=== PATIENT | female | born 1935 | race Caucasian/White ===

== ENCOUNTER 2017-08-21 13:21 | Inpatient (IN) | payer MEDICARE, OTHER ==
[2017-08-21] MEDS ORDERED: BISACODYL 10 MG SUPP PR (14:30)
[2017-08-21] MEDS: CARBIDOPA/LEVODOPA (25/100) TAB PO ×2 (16:59→20:44)
[2017-08-21] MEDS: FAMOTIDINE 20 MG TAB PO (20:43)
[2017-08-21] MEDS: DOCUSATE SODIUM 100 MG CAP PO (20:43)
[2017-08-21] MEDS: LORAZEPAM 1 MG TAB PO (20:43)
[2017-08-21] MEDS: AMIODARONE 200 MG TAB PO (20:43)
[2017-08-21] MEDS: ASPIRIN 81 MG TAB PO (20:43)
[2017-08-21] MEDS: METOPROLOL 50 MG TAB PO (22:09)
[2017-08-22] MEDS: HYDROCODONE/APAP (5/325) TAB PO ×3 (00:43→20:21)
[2017-08-22] MEDS: METOPROLOL 50 MG TAB PO ×4 (06:17→22:21)
[2017-08-22] MEDS: traMADol 50 MG TAB PO (06:18)
[2017-08-22 07:30] LABS: WHITE BLOOD COUNT 9.4 10^3/ul (4.8-10.8)
[2017-08-22 07:30] LABS: ABNORMAL IP MESSAGE 1; HEMATOCRIT 26.7 % (37.0-47.0); HEMOGLOBIN 8.3 g/dl (12.0-16.0); MEAN CORPUSCULAR HEMOGLOBIN 26.9 pg (29.0-33.0); MEAN CORPUSCULAR HGB CONC 31.1 g/dl (32.0-37.0); MEAN CORPUSCULAR VOLUME 86.7 fl (82.0-101.0); MEAN PLATELET VOLUME 9.4 fl (7.4-10.4); NUCLEATED RED BLOOD CELLS% 0.2 /100WBC (0.0-0.0); PLATELET COUNT 508 10^3/UL (140-415); RED BLOOD COUNT 3.08 10^6/ul (4.20-5.40); RED CELL DISTRIBUTION WIDTH 14.1 % (11.5-14.5)
[2017-08-22 07:34] LABS: POSITIVE DIFF @See below
[2017-08-22 07:35] LABS: ADD MAN DIFF? YES
[2017-08-22 07:43] LABS: ADD UMIC YES; ALANINE AMINOTRANSFERASE 28 IU/L (13-69); ALBUMIN/GLOBULIN RATIO 0.83; ALKALINE PHOSPHATASE 83 IU/L (42-121); ANION GAP 13 (8-16); ASPARTATE AMINO TRANSFERASE 27 IU/L (15-46); BILIRUBIN,INDIRECT 0.4 mg/dl (0-1.1); BILIRUBIN,TOTAL 0.4 mg/dl (0.2-1.3); BLOOD UREA NITROGEN 29 mg/dl (7-20); CALCIUM 9.3 mg/dl (8.4-10.2); CARBON DIOXIDE 28 mmol/L (21-31); CHLORIDE 99 mmol/L (97-110); CREATININE 0.98 mg/dl (0.44-1.00); GLUCOSE 115 mg/dl (70-220); POTASSIUM 4.8 mmol/L (3.5-5.1); SODIUM 135 mmol/L (135-144); TOTAL PROTEIN 6.6 g/dl (6.1-8.1); UR ASCORBIC ACID NEGATIVE (NEGATIVE); UR BACTERIA FEW /HPF (NONE SEEN); UR BILIRUBIN (Dip) NEGATIVE (NEGATIVE); UR BLOOD (Dip) NEGATIVE (NEGATIVE); UR CLARITY SLIGHTLY CLOUDY (CLEAR); UR COLOR YELLOW (YELLOW); UR GLUCOSE (Dip) NEGATIVE (NEGATIVE); UR KETONES (Dip) NEGATIVE (NEGATIVE); UR LEUKOCYTE ESTERASE (Dip) TRACE Leu/ul (NEGATIVE); UR NITRITE (Dip) NEGATIVE (NEGATIVE); UR RBC 1 /HPF (0-5); UR SPECIFIC GRAVITY (Dip) 1.016 (1.003-1.030); UR SQUAMOUS EPITHELIAL CELL FEW /HPF (FEW); UR TOTAL PROTEIN (Dip) NEGATIVE (NEGATIVE); UR UROBILINOGEN (Dip) NEGATIVE (NEGATIVE); UR WBC 8 /HPF (0-5)
[2017-08-22] MEDS: LUBIPROSTONE 24 MCG CAP PO (09:07)
[2017-08-22] MEDS: AMIODARONE 200 MG TAB PO ×2 (09:08→20:21)
[2017-08-22] MEDS: CITALOPRAM 20 MG TAB PO (09:08)
[2017-08-22] MEDS: ASPIRIN 81 MG TAB PO ×2 (09:08→20:20)
[2017-08-22] MEDS: DOCUSATE SODIUM 100 MG CAP PO ×2 (09:08→20:21)
[2017-08-22] MEDS: CARBIDOPA/LEVODOPA (25/100) TAB PO ×4 (09:09→20:21)
[2017-08-22] MEDS: FOLIC ACID 1 MG TAB PO (09:09)
[2017-08-22] MEDS: FAMOTIDINE 20 MG TAB PO ×2 (09:09→20:20)
[2017-08-22] MEDS: MAGNESIUM OXIDE 400 MG TAB PO (09:11)
[2017-08-22 09:35] LABS: ANISOCYTOSIS 1+ (0-0); EOSINOPHILS % (M) 2 % (0-7); LYMPHOCYTES #M 2.7 10^3/ul (0.8-2.9); LYMPHOCYTES % (M) 29 % (15-51); MICROCYTOSIS 1+ (0-0); MONOCYTE #M 0.4 10^3/ul (0.3-0.9); MONOCYTES % (M) 5 % (0-11); MYELOCYTES #M 0.1 10^3/ul (0.0-0.0); MYELOCYTES % (M) 2 % (0-0); PLATELET ESTIMATE INCREASED; POIKILOCYTOSIS 2+ (0-0); POLYCHROMASIA 1+ (0-0); PROMYELOCYTES % (M) 1 % (0-0); SEGMENTED NEUTROPHILS (M) % 61 % (39-77); SMUDGE%M 3 % (0-0)
[2017-08-22] MEDS: LORAZEPAM 1 MG TAB PO (20:21)
[2017-08-23] MEDS: ZOLPIDEM 5 MG TAB PO (00:58)
[2017-08-23] MEDS: HYDROCODONE/APAP (5/325) TAB PO ×3 (03:13→16:21)
[2017-08-23] MEDS: METOPROLOL 50 MG TAB PO ×3 (06:12→20:16)
[2017-08-23] MEDS: CITALOPRAM 20 MG TAB PO (08:38)
[2017-08-23] MEDS: FOLIC ACID 1 MG TAB PO (08:38)
[2017-08-23] MEDS: DOCUSATE SODIUM 100 MG CAP PO ×2 (08:38→20:12)
[2017-08-23] MEDS: ASPIRIN 81 MG TAB PO ×2 (08:38→20:12)
[2017-08-23] MEDS: CARBIDOPA/LEVODOPA (25/100) TAB PO ×4 (08:38→20:12)
[2017-08-23] MEDS: LUBIPROSTONE 24 MCG CAP PO (08:38)
[2017-08-23] MEDS: FAMOTIDINE 20 MG TAB PO ×2 (08:38→20:12)
[2017-08-23] MEDS: MAGNESIUM OXIDE 400 MG TAB PO (08:38)
[2017-08-23] MEDS: AMIODARONE 200 MG TAB PO ×2 (08:39→20:12)
[2017-08-23] MEDS: traMADol 50 MG TAB PO (08:40)
[2017-08-23] MEDS: GUAIFENESIN/DM 5ML CUP PO (16:21)
[2017-08-23] MEDS: LORAZEPAM 1 MG TAB PO (20:12)
[2017-08-24] MEDS: HYDROCODONE/APAP (5/325) TAB PO ×2 (01:51→14:18)
[2017-08-24] MEDS: METOPROLOL 50 MG TAB PO ×3 (06:43→20:41)
[2017-08-24] MEDS: LUBIPROSTONE 24 MCG CAP PO (09:15)
[2017-08-24] MEDS: CITALOPRAM 20 MG TAB PO (09:15)
[2017-08-24] MEDS: ASPIRIN 81 MG TAB PO ×2 (09:15→20:44)
[2017-08-24] MEDS: AMIODARONE 200 MG TAB PO ×2 (09:16→20:40)
[2017-08-24] MEDS: DOCUSATE SODIUM 100 MG CAP PO ×2 (09:16→20:42)
[2017-08-24] MEDS: FAMOTIDINE 20 MG TAB PO ×2 (09:17→20:39)
[2017-08-24] MEDS: MAGNESIUM OXIDE 400 MG TAB PO (09:17)
[2017-08-24] MEDS: FOLIC ACID 1 MG TAB PO (09:17)
[2017-08-24] MEDS: CARBIDOPA/LEVODOPA (25/100) TAB PO ×4 (09:17→20:39)
[2017-08-24] MEDS: LORAZEPAM 1 MG TAB PO (20:39)
[2017-08-25] MEDS: METOPROLOL 50 MG TAB PO ×3 (05:53→20:16)
[2017-08-25] MEDS: GUAIFENESIN/DM 5ML CUP PO (05:54)
[2017-08-25] MEDS: CARBIDOPA/LEVODOPA (25/100) TAB PO ×4 (08:17→20:13)
[2017-08-25] MEDS: CITALOPRAM 20 MG TAB PO (08:17)
[2017-08-25] MEDS: LUBIPROSTONE 24 MCG CAP PO (08:17)
[2017-08-25] MEDS: DOCUSATE SODIUM 100 MG CAP PO ×2 (08:17→20:13)
[2017-08-25] MEDS: MAGNESIUM OXIDE 400 MG TAB PO (08:17)
[2017-08-25] MEDS: ASPIRIN 81 MG TAB PO ×2 (08:17→20:13)
[2017-08-25] MEDS: FOLIC ACID 1 MG TAB PO (08:18)
[2017-08-25] MEDS: AMIODARONE 200 MG TAB PO ×2 (08:18→20:17)
[2017-08-25] MEDS: FAMOTIDINE 20 MG TAB PO ×2 (08:18→20:13)
[2017-08-25] MEDS: HYDROCODONE/APAP (5/325) TAB PO (13:03)
[2017-08-25] MEDS: LORAZEPAM 1 MG TAB PO (20:14)
[2017-08-25] MEDS: SENNA TAB PO (20:24)
[2017-08-26] MEDS: CIPROFLOXACIN 500 MG TAB PO (05:05)
[2017-08-26] MEDS: METOPROLOL 50 MG TAB PO ×3 (05:05→20:12)
[2017-08-26] MEDS: ACETAMINOPHEN 325 MG TAB PO (05:06)
[2017-08-26 07:27] LABS: ADD MAN DIFF? NO
[2017-08-26 07:29] LABS: BASOPHILS % 0.4 % (0.0-2.0); EOSINOPHILS # 0.2 10^3/ul (0.0-0.5); EOSINOPHILS % 2.3 % (0.0-7.0); HEMATOCRIT 29.1 % (37.0-47.0); LYMPHOCYTES # 2.7 10^3/ul (0.8-2.9); LYMPHOCYTES % 25.8 % (15.0-51.0); MEAN CORPUSCULAR HEMOGLOBIN 27.5 pg (29.0-33.0); MEAN CORPUSCULAR HGB CONC 30.9 g/dl (32.0-37.0); MEAN PLATELET VOLUME 8.8 fl (7.4-10.4); MONOCYTE # 0.8 10^3/ul (0.3-0.9); MONOCYTES % 7.2 % (0.0-11.0); NEUTROPHIL # 6.5 10^3/ul (1.6-7.5); NEUTROPHILS % 61.5 % (39.0-77.0); PLATELET COUNT 648 10^3/UL (140-415); RED BLOOD COUNT 3.27 10^6/ul (4.20-5.40); RED CELL DISTRIBUTION WIDTH 14.9 % (11.5-14.5)
[2017-08-26 07:29] LABS: WHITE BLOOD COUNT 10.6 10^3/ul (4.8-10.8)
[2017-08-26 07:54] LABS: ANION GAP 12 (8-16); BLOOD UREA NITROGEN 16 mg/dl (7-20); CALCIUM 8.5 mg/dl (8.4-10.2); CARBON DIOXIDE 26 mmol/L (21-31); CHLORIDE 102 mmol/L (97-110); CREATININE 0.79 mg/dl (0.44-1.00); GLUCOSE 131 mg/dl (70-220); POTASSIUM 4.3 mmol/L (3.5-5.1); SODIUM 136 mmol/L (135-144)
[2017-08-26] MEDS: LUBIPROSTONE 24 MCG CAP PO (09:22)
[2017-08-26] MEDS: SENNA TAB PO (09:22)
[2017-08-26] MEDS: MAGNESIUM OXIDE 400 MG TAB PO (09:22)
[2017-08-26] MEDS: FOLIC ACID 1 MG TAB PO (09:22)
[2017-08-26] MEDS: CARBIDOPA/LEVODOPA (25/100) TAB PO ×4 (09:22→20:11)
[2017-08-26] MEDS: DOCUSATE SODIUM 100 MG CAP PO ×2 (09:23→21:00)
[2017-08-26] MEDS: CITALOPRAM 20 MG TAB PO (09:23)
[2017-08-26] MEDS: AMIODARONE 200 MG TAB PO (09:24)
[2017-08-26] MEDS: FAMOTIDINE 20 MG TAB PO ×2 (09:24→20:12)
[2017-08-26] MEDS: ASPIRIN 81 MG TAB PO ×2 (09:24→20:10)
[2017-08-26] MEDS: MAGNESIUM HYDROXIDE 30ML CUP PO (13:31)
[2017-08-26] MEDS: GUAIFENESIN/DM 5ML CUP PO (13:57)
[2017-08-26] MEDS: LORAZEPAM 1 MG TAB PO (20:11)
[2017-08-26] MEDS: HYDROCODONE/APAP (5/325) TAB PO (20:45)
[2017-08-27] MEDS: CIPROFLOXACIN 500 MG TAB PO (06:47)
[2017-08-27] MEDS: ASPIRIN 81 MG TAB PO ×2 (08:47→20:29)
[2017-08-27] MEDS: FOLIC ACID 1 MG TAB PO (08:47)
[2017-08-27] MEDS: METOPROLOL 50 MG TAB PO ×2 (08:47→20:29)
[2017-08-27] MEDS: CITALOPRAM 20 MG TAB PO (08:47)
[2017-08-27] MEDS: DOCUSATE SODIUM 100 MG CAP PO ×2 (08:47→21:00)
[2017-08-27] MEDS: LUBIPROSTONE 24 MCG CAP PO (08:47)
[2017-08-27] MEDS: SENNA TAB PO (08:48)
[2017-08-27] MEDS: FAMOTIDINE 20 MG TAB PO ×2 (08:48→20:29)
[2017-08-27] MEDS: MAGNESIUM OXIDE 400 MG TAB PO (08:48)
[2017-08-27] MEDS: CARBIDOPA/LEVODOPA (25/100) TAB PO ×4 (08:48→20:29)
[2017-08-27] MEDS: LORAZEPAM 1 MG TAB PO (20:29)
[2017-08-27] MEDS: HYDROCODONE/APAP (5/325) TAB PO (20:59)
[2017-08-27] MEDS: ZOLPIDEM 5 MG TAB PO (23:07)
[2017-08-28] MEDS: CIPROFLOXACIN 500 MG TAB PO (05:54)
[2017-08-28] MEDS: CARBIDOPA/LEVODOPA (25/100) TAB PO ×4 (09:27→20:03)
[2017-08-28] MEDS: METOPROLOL 50 MG TAB PO ×2 (09:27→20:07)
[2017-08-28] MEDS: ASPIRIN 81 MG TAB PO ×2 (09:28→20:03)
[2017-08-28] MEDS: FOLIC ACID 1 MG TAB PO (09:29)
[2017-08-28] MEDS: SENNA TAB PO (09:29)
[2017-08-28] MEDS: DOCUSATE SODIUM 100 MG CAP PO ×2 (09:29→20:07)
[2017-08-28] MEDS: MAGNESIUM OXIDE 400 MG TAB PO (09:29)
[2017-08-28] MEDS: LUBIPROSTONE 24 MCG CAP PO (09:29)
[2017-08-28] MEDS: FAMOTIDINE 20 MG TAB PO ×2 (09:29→20:03)
[2017-08-28] MEDS: CITALOPRAM 20 MG TAB PO (09:29)
[2017-08-28] MEDS: ACETAMINOPHEN 325 MG TAB PO (11:29)
[2017-08-28] MEDS: LORAZEPAM 1 MG TAB PO (20:03)
[2017-08-28] MEDS: ZOLPIDEM 5 MG TAB PO (22:12)
[2017-08-28] MEDS: HYDROCODONE/APAP (5/325) TAB PO (22:12)
[2017-08-29] MEDS: CIPROFLOXACIN 500 MG TAB PO (06:00)
[2017-08-29] MEDS: HYDROCODONE/APAP (5/325) TAB PO ×2 (06:55→21:24)
[2017-08-29] MEDS: CARBIDOPA/LEVODOPA (25/100) TAB PO ×4 (09:20→20:09)
[2017-08-29] MEDS: LUBIPROSTONE 24 MCG CAP PO (09:20)
[2017-08-29] MEDS: CITALOPRAM 20 MG TAB PO (09:22)
[2017-08-29] MEDS: SENNA TAB PO (09:23)
[2017-08-29] MEDS: FOLIC ACID 1 MG TAB PO (09:23)
[2017-08-29] MEDS: FAMOTIDINE 20 MG TAB PO ×2 (09:23→20:09)
[2017-08-29] MEDS: ASPIRIN 81 MG TAB PO ×2 (09:23→20:09)
[2017-08-29] MEDS: DOCUSATE SODIUM 100 MG CAP PO ×2 (09:23→20:08)
[2017-08-29] MEDS: MAGNESIUM OXIDE 400 MG TAB PO (09:23)
[2017-08-29] MEDS: METOPROLOL 50 MG TAB PO ×2 (09:24→20:09)
[2017-08-29] MEDS: LORAZEPAM 1 MG TAB PO (20:09)
[2017-08-30] MEDS: GUAIFENESIN/DM 5ML CUP PO
[2017-08-30] MEDS: CIPROFLOXACIN 500 MG TAB PO (06:24)
[2017-08-30] MEDS: LUBIPROSTONE 24 MCG CAP PO (09:15)
[2017-08-30] MEDS: DOCUSATE SODIUM 100 MG CAP PO ×2 (09:16→20:21)
[2017-08-30] MEDS: HYDROCODONE/APAP (5/325) TAB PO ×2 (09:16→20:22)
[2017-08-30] MEDS: METOPROLOL 50 MG TAB PO ×2 (09:17→20:20)
[2017-08-30] MEDS: SENNA TAB PO (09:17)
[2017-08-30] MEDS: CITALOPRAM 20 MG TAB PO (09:17)
[2017-08-30] MEDS: ASPIRIN 81 MG TAB PO ×2 (09:17→20:20)
[2017-08-30] MEDS: MAGNESIUM OXIDE 400 MG TAB PO (09:18)
[2017-08-30] MEDS: CARBIDOPA/LEVODOPA (25/100) TAB PO ×4 (09:18→20:21)
[2017-08-30] MEDS: FOLIC ACID 1 MG TAB PO (09:18)
[2017-08-30] MEDS: FAMOTIDINE 20 MG TAB PO ×2 (09:18→20:21)
[2017-08-30] MEDS: TRIAMTERENE/HCTZ (37.5-25) CAP PO (18:09)
[2017-08-30] MEDS: LORAZEPAM 1 MG TAB PO (20:20)
[2017-08-31] MEDS: CIPROFLOXACIN 500 MG TAB PO (06:12)
[2017-08-31] MEDS: LACTULOSE 30ML CUP PO (08:46)
[2017-08-31] MEDS: CITALOPRAM 20 MG TAB PO (08:46)
[2017-08-31] MEDS: HYDROCODONE/APAP (5/325) TAB PO ×2 (08:46→15:17)
[2017-08-31] MEDS: CARBIDOPA/LEVODOPA (25/100) TAB PO ×4 (08:46→20:16)
[2017-08-31] MEDS: TRIAMTERENE/HCTZ (37.5-25) CAP PO (08:47)
[2017-08-31] MEDS: FOLIC ACID 1 MG TAB PO (08:47)
[2017-08-31] MEDS: LUBIPROSTONE 24 MCG CAP PO (08:47)
[2017-08-31] MEDS: ASPIRIN 81 MG TAB PO ×2 (08:47→20:16)
[2017-08-31] MEDS: DOCUSATE SODIUM 100 MG CAP PO ×2 (08:47→20:16)
[2017-08-31] MEDS: METOPROLOL 50 MG TAB PO ×2 (08:47→20:17)
[2017-08-31] MEDS: FAMOTIDINE 20 MG TAB PO ×2 (08:48→20:16)
[2017-08-31] MEDS: SENNA TAB PO (08:48)
[2017-08-31] MEDS: MAGNESIUM OXIDE 400 MG TAB PO (08:48)
[2017-08-31] MEDS: LORAZEPAM 1 MG TAB PO (20:16)
[2017-09-01] MEDS: HYDROCODONE/APAP (5/325) TAB PO ×3 (01:22→22:05)
[2017-09-01] MEDS: ZOLPIDEM 5 MG TAB PO ×2 (01:22→22:04)
[2017-09-01] MEDS: CIPROFLOXACIN 500 MG TAB PO (06:19)
[2017-09-01] MEDS: DOCUSATE SODIUM 100 MG CAP PO ×2 (08:47→20:37)
[2017-09-01] MEDS: FOLIC ACID 1 MG TAB PO (08:48)
[2017-09-01] MEDS: SENNA TAB PO (08:48)
[2017-09-01] MEDS: METOPROLOL 50 MG TAB PO ×2 (08:48→20:37)
[2017-09-01] MEDS: CARBIDOPA/LEVODOPA (25/100) TAB PO ×4 (08:49→20:36)
[2017-09-01] MEDS: CITALOPRAM 20 MG TAB PO (08:49)
[2017-09-01] MEDS: ASPIRIN 81 MG TAB PO ×2 (08:49→20:36)
[2017-09-01] MEDS: MAGNESIUM OXIDE 400 MG TAB PO (08:49)
[2017-09-01] MEDS: FAMOTIDINE 20 MG TAB PO ×2 (08:50→20:37)
[2017-09-01] MEDS: LUBIPROSTONE 24 MCG CAP PO (08:50)
[2017-09-01] MEDS: TRIAMTERENE/HCTZ (37.5-25) CAP PO (08:50)
[2017-09-01] MEDS: GUAIFENESIN/DM 5ML CUP PO (09:46)
[2017-09-01] MEDS: LORAZEPAM 1 MG TAB PO (20:36)
[2017-09-02] MEDS: CIPROFLOXACIN 500 MG TAB PO (06:43)
[2017-09-02] MEDS: DOCUSATE SODIUM 100 MG CAP PO ×2 (08:02→20:22)
[2017-09-02] MEDS: ASPIRIN 81 MG TAB PO ×2 (08:02→20:22)
[2017-09-02] MEDS: LUBIPROSTONE 24 MCG CAP PO (08:02)
[2017-09-02] MEDS: SENNA TAB PO (08:02)
[2017-09-02] MEDS: HYDROCODONE/APAP (5/325) TAB PO ×2 (08:03→20:22)
[2017-09-02] MEDS: CITALOPRAM 20 MG TAB PO (08:03)
[2017-09-02] MEDS: CARBIDOPA/LEVODOPA (25/100) TAB PO ×4 (08:03→20:22)
[2017-09-02] MEDS: FAMOTIDINE 20 MG TAB PO ×2 (08:04→20:22)
[2017-09-02] MEDS: TRIAMTERENE/HCTZ (37.5-25) CAP PO (08:04)
[2017-09-02] MEDS: MAGNESIUM OXIDE 400 MG TAB PO (08:04)
[2017-09-02] MEDS: FOLIC ACID 1 MG TAB PO (08:04)
[2017-09-02] MEDS: METOPROLOL 50 MG TAB PO ×2 (08:05→20:24)
[2017-09-02 09:06] LABS: ADD MAN DIFF? NO
[2017-09-02 09:07] LABS: WHITE BLOOD COUNT 4.8 10^3/ul (4.8-10.8)
[2017-09-02 09:07] LABS: BASOPHILS % 0.4 % (0.0-2.0); EOSINOPHILS # 0.2 10^3/ul (0.0-0.5); EOSINOPHILS % 3.3 % (0.0-7.0); HEMATOCRIT 28.7 % (37.0-47.0); HEMOGLOBIN 9.3 g/dl (12.0-16.0); LYMPHOCYTES # 2.4 10^3/ul (0.8-2.9); LYMPHOCYTES % 49.2 % (15.0-51.0); MEAN CORPUSCULAR HEMOGLOBIN 27.9 pg (29.0-33.0); MEAN CORPUSCULAR HGB CONC 32.4 g/dl (32.0-37.0); MEAN CORPUSCULAR VOLUME 86.2 fl (82.0-101.0); MEAN PLATELET VOLUME 9.4 fl (7.4-10.4); MONOCYTE # 0.4 10^3/ul (0.3-0.9); NEUTROPHIL # 1.8 10^3/ul (1.6-7.5); NEUTROPHILS % 37.3 % (39.0-77.0); PLATELET COUNT 515 10^3/UL (140-415); RED BLOOD COUNT 3.33 10^6/ul (4.20-5.40); RED CELL DISTRIBUTION WIDTH 14.9 % (11.5-14.5)
[2017-09-02 09:42] LABS: ANION GAP 13 (8-16); BLOOD UREA NITROGEN 22 mg/dl (7-20); CARBON DIOXIDE 30 mmol/L (21-31); CHLORIDE 96 mmol/L (97-110); CREATININE 0.84 mg/dl (0.44-1.00); GLUCOSE 100 mg/dl (70-220); POTASSIUM 4.2 mmol/L (3.5-5.1); SODIUM 135 mmol/L (135-144)
[2017-09-02] MEDS: LACTULOSE 30ML CUP PO (12:39)
[2017-09-02] MEDS: FLUTICASONE 0.05% 16 GM NAS SPRAY NASAL (16:36)
[2017-09-02] MEDS: LORAZEPAM 1 MG TAB PO (20:22)
[2017-09-03] MEDS: CIPROFLOXACIN 500 MG TAB PO (05:32)
[2017-09-03] MEDS: LUBIPROSTONE 24 MCG CAP PO (08:16)
[2017-09-03] MEDS: SENNA TAB PO (08:16)
[2017-09-03] MEDS: DOCUSATE SODIUM 100 MG CAP PO ×2 (08:16→20:16)
[2017-09-03] MEDS: FAMOTIDINE 20 MG TAB PO ×2 (08:16→20:16)
[2017-09-03] MEDS: ASPIRIN 81 MG TAB PO ×2 (08:17→20:17)
[2017-09-03] MEDS: FOLIC ACID 1 MG TAB PO (08:17)
[2017-09-03] MEDS: TRIAMTERENE/HCTZ (37.5-25) CAP PO (08:17)
[2017-09-03] MEDS: MAGNESIUM OXIDE 400 MG TAB PO (08:17)
[2017-09-03] MEDS: CARBIDOPA/LEVODOPA (25/100) TAB PO ×4 (08:17→20:17)
[2017-09-03] MEDS: HYDROCODONE/APAP (5/325) TAB PO ×2 (08:18→20:18)
[2017-09-03] MEDS: FLUTICASONE 0.05% 16 GM NAS SPRAY NASAL (08:19)
[2017-09-03] MEDS: METOPROLOL 50 MG TAB PO ×3 (08:20→20:17)
[2017-09-03] MEDS: CITALOPRAM 20 MG TAB PO (09:42)
[2017-09-03] MEDS: LORAZEPAM 1 MG TAB PO (20:17)
[2017-09-04] MEDS: CIPROFLOXACIN 500 MG TAB PO (06:35)
[2017-09-04] MEDS: FLUTICASONE 0.05% 16 GM NAS SPRAY NASAL (09:29)
[2017-09-04] MEDS: MAGNESIUM OXIDE 400 MG TAB PO (09:29)
[2017-09-04] MEDS: DOCUSATE SODIUM 100 MG CAP PO ×2 (09:29→20:07)
[2017-09-04] MEDS: LUBIPROSTONE 24 MCG CAP PO (09:29)
[2017-09-04] MEDS: SENNA TAB PO (09:29)
[2017-09-04] MEDS: CITALOPRAM 20 MG TAB PO (09:32)
[2017-09-04] MEDS: METOPROLOL 50 MG TAB PO ×2 (09:32→20:17)
[2017-09-04] MEDS: FOLIC ACID 1 MG TAB PO (09:33)
[2017-09-04] MEDS: FAMOTIDINE 20 MG TAB PO ×2 (09:33→20:08)
[2017-09-04] MEDS: CARBIDOPA/LEVODOPA (25/100) TAB PO ×4 (09:33→20:08)
[2017-09-04] MEDS: ASPIRIN 81 MG TAB PO ×2 (09:33→20:08)
[2017-09-04] MEDS: TRIAMTERENE/HCTZ (37.5-25) CAP PO (09:33)
[2017-09-04] MEDS: LACTULOSE 30ML CUP PO (12:01)
[2017-09-04] MEDS: GUAIFENESIN/DM 5ML CUP PO (14:54)
[2017-09-04] MEDS: LORAZEPAM 1 MG TAB PO (20:08)
[2017-09-04] MEDS: HYDROCODONE/APAP (5/325) TAB PO (20:09)
[2017-09-05] MEDS: CIPROFLOXACIN 500 MG TAB PO (06:21)
[2017-09-05] MEDS: FLUTICASONE 0.05% 16 GM NAS SPRAY NASAL (08:56)
[2017-09-05] MEDS: CITALOPRAM 20 MG TAB PO (08:57)
[2017-09-05] MEDS: HYDROCODONE/APAP (5/325) TAB PO ×2 (08:57→20:23)
[2017-09-05] MEDS: SENNA TAB PO (08:57)
[2017-09-05] MEDS: LUBIPROSTONE 24 MCG CAP PO (08:57)
[2017-09-05] MEDS: METOPROLOL 50 MG TAB PO ×2 (08:58→20:23)
[2017-09-05] MEDS: DOCUSATE SODIUM 100 MG CAP PO ×2 (08:59→20:22)
[2017-09-05] MEDS: ASPIRIN 81 MG TAB PO ×2 (08:59→20:24)
[2017-09-05] MEDS: FAMOTIDINE 20 MG TAB PO ×2 (08:59→20:23)
[2017-09-05] MEDS: FOLIC ACID 1 MG TAB PO (08:59)
[2017-09-05] MEDS: TRIAMTERENE/HCTZ (37.5-25) CAP PO (08:59)
[2017-09-05] MEDS: CARBIDOPA/LEVODOPA (25/100) TAB PO ×4 (08:59→20:23)
[2017-09-05] MEDS: MAGNESIUM OXIDE 400 MG TAB PO (08:59)
[2017-09-05] MEDS: GUAIFENESIN/DM 5ML CUP PO (12:50)
[2017-09-05] MEDS: LORAZEPAM 1 MG TAB PO (20:24)
[2017-09-06] MEDS: HYDROCODONE/APAP (5/325) TAB PO (00:37)
[2017-09-06] MEDS: ZOLPIDEM 5 MG TAB PO (00:37)
[2017-09-06] MEDS: CIPROFLOXACIN 500 MG TAB PO (05:59)
[2017-09-06] MEDS: LUBIPROSTONE 24 MCG CAP PO (08:32)
[2017-09-06] MEDS: FLUTICASONE 0.05% 16 GM NAS SPRAY NASAL (08:32)
[2017-09-06] MEDS: CARBIDOPA/LEVODOPA (25/100) TAB PO ×4 (08:33→20:07)
[2017-09-06] MEDS: CITALOPRAM 20 MG TAB PO (08:33)
[2017-09-06] MEDS: DOCUSATE SODIUM 100 MG CAP PO ×2 (08:33→20:07)
[2017-09-06] MEDS: ASPIRIN 81 MG TAB PO ×2 (08:33→20:07)
[2017-09-06] MEDS: MAGNESIUM OXIDE 400 MG TAB PO (08:33)
[2017-09-06] MEDS: TRIAMTERENE/HCTZ (37.5-25) CAP PO (08:33)
[2017-09-06] MEDS: FOLIC ACID 1 MG TAB PO (08:33)
[2017-09-06] MEDS: FAMOTIDINE 20 MG TAB PO ×2 (08:33→20:07)
[2017-09-06] MEDS: SENNA TAB PO (08:34)
[2017-09-06] MEDS: METOPROLOL 50 MG TAB PO ×2 (08:34→21:00)
[2017-09-06] MEDS: LACTULOSE 30ML CUP PO (17:00)
[2017-09-06] MEDS: LORAZEPAM 1 MG TAB PO (20:07)
[2017-09-07] MEDS: HYDROCODONE/APAP (5/325) TAB PO ×2 (00:56→20:36)
[2017-09-07] MEDS: METOPROLOL 50 MG TAB PO ×2 (09:17→21:00)
[2017-09-07] MEDS: FAMOTIDINE 20 MG TAB PO ×2 (09:17→20:36)
[2017-09-07] MEDS: DOCUSATE SODIUM 100 MG CAP PO ×2 (09:17→20:35)
[2017-09-07] MEDS: TRIAMTERENE/HCTZ (37.5-25) CAP PO (09:17)
[2017-09-07] MEDS: CITALOPRAM 20 MG TAB PO (09:18)
[2017-09-07] MEDS: ASPIRIN 81 MG TAB PO ×2 (09:18→20:35)
[2017-09-07] MEDS: MAGNESIUM OXIDE 400 MG TAB PO (09:18)
[2017-09-07] MEDS: CARBIDOPA/LEVODOPA (25/100) TAB PO ×4 (09:18→20:35)
[2017-09-07] MEDS: ACETAMINOPHEN 325 MG TAB PO (09:21)
[2017-09-07] MEDS: SENNA TAB PO (09:21)
[2017-09-07] MEDS: FLUTICASONE 0.05% 16 GM NAS SPRAY NASAL (09:22)
[2017-09-07] MEDS: LUBIPROSTONE 24 MCG CAP PO (09:22)
[2017-09-07] MEDS: MAGNESIUM HYDROXIDE 30ML CUP PO (09:24)
[2017-09-07] MEDS: FOLIC ACID 1 MG TAB PO (09:25)
[2017-09-07] MEDS: LORAZEPAM 1 MG TAB PO (20:35)
[2017-09-08] MEDS: FLUTICASONE 0.05% 16 GM NAS SPRAY NASAL (08:41)
[2017-09-08] MEDS: TRIAMTERENE/HCTZ (37.5-25) CAP PO (08:42)
[2017-09-08] MEDS: FAMOTIDINE 20 MG TAB PO (08:42)
[2017-09-08] MEDS: LUBIPROSTONE 24 MCG CAP PO (08:42)
[2017-09-08] MEDS: FOLIC ACID 1 MG TAB PO (08:43)
[2017-09-08] MEDS: CITALOPRAM 20 MG TAB PO (08:43)
[2017-09-08] MEDS: ASPIRIN 81 MG TAB PO (08:43)
[2017-09-08] MEDS: CARBIDOPA/LEVODOPA (25/100) TAB PO ×2 (08:43→12:19)
[2017-09-08] MEDS: METOPROLOL 50 MG TAB PO (08:43)
[2017-09-08] MEDS: SENNA TAB PO (08:43)
[2017-09-08] MEDS: DOCUSATE SODIUM 100 MG CAP PO (08:43)
[2017-09-08] MEDS: MAGNESIUM OXIDE 400 MG TAB PO (08:43)
== END 2017-09-08 14:00 | disposition home health service (06) | DRG 560 ==
LOC: VRC 13:21
PROC: F07Z9FZ Gait Training/Functional Ambulation Treatment using Assistive, Adaptive, Supportive or Protective Equipment (ICD-10-PCS; principal; 2017-08-21)
PROC: F07Z5FZ Bed Mobility Treatment using Assistive, Adaptive, Supportive or Protective Equipment (ICD-10-PCS; 2017-08-21)
PROC: F07Z8FZ Transfer Training Treatment using Assistive, Adaptive, Supportive or Protective Equipment (ICD-10-PCS; 2017-08-21)
PROC: F08Z2FZ Grooming/Personal Hygiene Treatment using Assistive, Adaptive, Supportive or Protective Equipment (ICD-10-PCS; 2017-08-21)
PROC: F08Z0FZ Bathing/Showering Techniques Treatment using Assistive, Adaptive, Supportive or Protective Equipment (ICD-10-PCS; 2017-08-21)
PROC: F08Z1FZ Dressing Techniques Treatment using Assistive, Adaptive, Supportive or Protective Equipment (ICD-10-PCS; 2017-08-21)
DX: S72.001D Fracture of unspecified part of neck of right femur, subsequent encounter for closed fracture with routine healing (principal); N39.0 Urinary tract infection, site not specified; G20 Parkinson's disease; I11.0 Hypertensive heart disease with heart failure; I50.9 Heart failure, unspecified; F33.1 Major depressive disorder, recurrent, moderate; Z74.09 Other reduced mobility; K59.00 Constipation, unspecified; M54.5 Low back pain; F41.9 Anxiety disorder, unspecified; G89.11 Acute pain due to trauma; D64.9 Anemia, unspecified; E78.5 Hyperlipidemia, unspecified; R26.89 Other abnormalities of gait and mobility; K29.70 Gastritis, unspecified, without bleeding; Z96.641 Presence of right artificial hip joint; Z86.73 Personal history of transient ischemic attack (TIA), and cerebral infarction without residual deficits; Z79.82 Long term (current) use of aspirin; W18.39XD Other fall on same level, subsequent encounter
CPT/HCPCS: 71010; 80048; 80053; 81001; 85025; 87081; 87086; 92507; 97110; 97112; 97116; 97150; 97163; 97165; 97530; 97535; 97542

== ENCOUNTER 2018-12-17 18:10 | Inpatient (IN) | payer MEDICARE, OTHER ==
[2018-12-17] MEDS ORDERED: PENDING SANTYL ORDER FOR WOUND CARE XX (19:00)
[2018-12-17] MEDS ORDERED: ACETAMINOPHEN 325 MG TAB PO (19:00)
[2018-12-17] MEDS ORDERED: BISACODYL 10 MG SUPP PR (19:00)
[2018-12-17] MEDS ORDERED: LACTULOSE 30ML CUP PO (19:00)
[2018-12-17] MEDS: AMIODARONE 200 MG TAB PO (22:22)
[2018-12-17] MEDS: LORAZEPAM 0.5 MG TAB PO (22:22)
[2018-12-17] MEDS: SENNA TAB PO (22:23)
[2018-12-17] MEDS: LUBIPROSTONE 24 MCG CAP PO (22:23)
[2018-12-17] MEDS: CARBIDOPA/LEVODOPA (25/100) TAB PO (22:23)
[2018-12-17] MEDS: METOPROLOL (XL) 50 MG TAB PO (22:23)
[2018-12-17] MEDS: DOCUSATE SODIUM 100 MG CAP PO (22:23)
[2018-12-17] MEDS: PRAMIPEXOLE 0.25 MG TAB PO (22:24)
[2018-12-17] MEDS: ENOXAPARIN 60 MG/0.6 ML SYG SC (22:27)
[2018-12-18] MEDS: PANTOPRAZOLE (EC) 40 MG TAB PO (06:33)
[2018-12-18 07:19] LABS: ADD MAN DIFF? NO
[2018-12-18 07:26] LABS: WHITE BLOOD COUNT 5.1 10^3/ul (4.8-10.8)
[2018-12-18 07:26] LABS: BASOPHILS % 0.2 % (0.0-2.0); EOSINOPHILS # 0.1 10^3/ul (0.0-0.5); EOSINOPHILS % 2.2 % (0.0-7.0); HEMATOCRIT 33.9 % (37.0-47.0); HEMOGLOBIN 10.3 g/dl (12.0-16.0); LYMPHOCYTES # 2.5 10^3/ul (0.8-2.9); LYMPHOCYTES % 48.7 % (15.0-51.0); MEAN CORPUSCULAR HEMOGLOBIN 24.7 pg (29.0-33.0); MEAN CORPUSCULAR HGB CONC 30.4 g/dl (32.0-37.0); MEAN CORPUSCULAR VOLUME 81.3 fl (82.0-101.0); MEAN PLATELET VOLUME 9.8 fl (7.4-10.4); MONOCYTE # 0.5 10^3/ul (0.3-0.9); MONOCYTES % 9.9 % (0.0-11.0); NEUTROPHIL # 1.9 10^3/ul (1.6-7.5); NEUTROPHILS % 38.4 % (39.0-77.0); PLATELET COUNT 369 10^3/UL (140-415); RED BLOOD COUNT 4.17 10^6/ul (4.20-5.40); RED CELL DISTRIBUTION WIDTH 14.9 % (11.5-14.5)
[2018-12-18 07:59] LABS: ALANINE AMINOTRANSFERASE 19 IU/L (13-69); ALBUMIN 3.8 g/dl (3.3-4.9); ALBUMIN/GLOBULIN RATIO 1.11; ALKALINE PHOSPHATASE 75 IU/L (42-121); ANION GAP 6 (5-13); ASPARTATE AMINO TRANSFERASE 36 IU/L (15-46); BILIRUBIN,INDIRECT 0.6 mg/dl (0-1.1); BILIRUBIN,TOTAL 0.6 mg/dl (0.2-1.3); BLOOD UREA NITROGEN 19 mg/dl (7-20); CALCIUM 9.5 mg/dl (8.4-10.2); CARBON DIOXIDE 28 mmol/L (21-31); CHLORIDE 103 mmol/L (97-110); CREATININE 0.86 mg/dl (0.44-1.00); GLUCOSE 105 mg/dl (70-220); POTASSIUM 4.2 mmol/L (3.5-5.1); SODIUM 137 mmol/L (135-144); TOTAL PROTEIN 7.2 g/dl (6.1-8.1)
[2018-12-18] MEDS: DOCUSATE SODIUM 100 MG CAP PO ×2 (09:00→20:32)
[2018-12-18] MEDS: LUBIPROSTONE 24 MCG CAP PO ×2 (09:00→20:32)
[2018-12-18] MEDS: ESCITALOPRAM 10 MG TAB PO (09:12)
[2018-12-18] MEDS: CLOPIDOGREL 75 MG TAB PO (09:12)
[2018-12-18] MEDS: FOLIC ACID 1 MG TAB PO (09:12)
[2018-12-18] MEDS: MAGNESIUM OXIDE 400 MG TAB PO (09:12)
[2018-12-18] MEDS: AMIODARONE 200 MG TAB PO ×2 (09:13→20:36)
[2018-12-18] MEDS: CARBIDOPA/LEVODOPA (25/100) TAB PO ×4 (09:14→20:32)
[2018-12-18] MEDS: FUROSEMIDE 20 MG TAB PO (09:14)
[2018-12-18] MEDS: PRAMIPEXOLE 0.25 MG TAB PO ×2 (09:14→21:22)
[2018-12-18] MEDS: METOPROLOL (XL) 50 MG TAB PO ×2 (09:14→20:36)
[2018-12-18] MEDS: ENOXAPARIN 60 MG/0.6 ML SYG SC ×2 (09:22→20:53)
[2018-12-18] MEDS: ACETAMINOPHEN 325 MG TAB PO (15:18)
[2018-12-18 16:41] LABS: ADD UMIC YES; UR ASCORBIC ACID NEGATIVE (NEGATIVE); UR BACTERIA MANY /HPF (NONE SEEN); UR BILIRUBIN (Dip) NEGATIVE (NEGATIVE); UR BLOOD (Dip) NEGATIVE (NEGATIVE); UR CLARITY CLOUDY (CLEAR); UR COLOR AMBER (YELLOW); UR GLUCOSE (Dip) NEGATIVE (NEGATIVE); UR KETONES (Dip) TRACE mg/dL (NEGATIVE); UR LEUKOCYTE ESTERASE (Dip) NEGATIVE Leu/ul (NEGATIVE); UR MUCUS FEW /HPF (NONE SEEN); UR NITRITE (Dip) POSITIVE (NEGATIVE); UR RBC 0 /HPF (0-5); UR SPECIFIC GRAVITY (Dip) 1.021 (1.003-1.030); UR TOTAL PROTEIN (Dip) NEGATIVE (NEGATIVE); UR UROBILINOGEN (Dip) 1+ mg/dL (NEGATIVE); UR WBC 5 /HPF (0-5)
[2018-12-18] MEDS: LORAZEPAM 0.5 MG TAB PO (20:32)
[2018-12-18] MEDS: SENNA TAB PO (20:33)
[2018-12-19] MEDS: PANTOPRAZOLE (EC) 40 MG TAB PO (05:44)
[2018-12-19 07:08] LABS: CHOL/HDL RATIO 4.8 RATIO; HDL CHOLESTEROL 35 mg/dl (33-92); LDL CHOLESTEROL,CALCULATED 106 mg/dl; TRIGLYCERIDES 142 mg/dl (0-149)
[2018-12-19 07:08] LABS: CHOLESTEROL 169 mg/dl (100-200)
[2018-12-19] MEDS: PRAMIPEXOLE 0.25 MG TAB PO ×2 (09:49→21:26)
[2018-12-19] MEDS: CLOPIDOGREL 75 MG TAB PO (09:49)
[2018-12-19] MEDS: FUROSEMIDE 20 MG TAB PO (09:50)
[2018-12-19] MEDS: CARBIDOPA/LEVODOPA (25/100) TAB PO ×4 (09:50→21:25)
[2018-12-19] MEDS: FOLIC ACID 1 MG TAB PO (09:51)
[2018-12-19] MEDS: traMADol 50 MG TAB PO ×2 (09:51→17:22)
[2018-12-19] MEDS: METOPROLOL (XL) 50 MG TAB PO ×2 (09:51→21:30)
[2018-12-19] MEDS: DOCUSATE SODIUM 100 MG CAP PO ×2 (09:51→21:24)
[2018-12-19] MEDS: ESCITALOPRAM 10 MG TAB PO (09:51)
[2018-12-19] MEDS: LUBIPROSTONE 24 MCG CAP PO ×2 (09:51→21:25)
[2018-12-19] MEDS: APIXABAN 5 MG TABLET PO ×2 (09:52→21:26)
[2018-12-19] MEDS: MAGNESIUM OXIDE 400 MG TAB PO (09:52)
[2018-12-19] MEDS: AMIODARONE 200 MG TAB PO ×2 (09:52→21:28)
[2018-12-19] MEDS: CIPROFLOXACIN 500 MG TAB PO (17:22)
[2018-12-19] MEDS: SENNA TAB PO (21:24)
[2018-12-19] MEDS: LORAZEPAM 0.5 MG TAB PO (21:25)
[2018-12-19] MEDS: NIFEdipine (XL) 30 MG TAB PO (21:29)
[2018-12-20] MEDS: CIPROFLOXACIN 500 MG TAB PO (06:26)
[2018-12-20] MEDS: PANTOPRAZOLE (EC) 40 MG TAB PO (06:26)
[2018-12-20] MEDS: DOCUSATE SODIUM 100 MG CAP PO ×2 (08:58→21:32)
[2018-12-20] MEDS: MAGNESIUM OXIDE 400 MG TAB PO (08:58)
[2018-12-20] MEDS: PRAMIPEXOLE 0.25 MG TAB PO ×2 (09:06→21:32)
[2018-12-20] MEDS: APIXABAN 5 MG TABLET PO ×2 (09:06→21:31)
[2018-12-20] MEDS: LUBIPROSTONE 24 MCG CAP PO ×2 (09:07→21:00)
[2018-12-20] MEDS: traMADol 50 MG TAB PO (09:07)
[2018-12-20] MEDS: CARBIDOPA/LEVODOPA (25/100) TAB PO ×4 (09:08→21:32)
[2018-12-20] MEDS: METOPROLOL (XL) 50 MG TAB PO ×2 (09:08→21:00)
[2018-12-20] MEDS: NIFEdipine (XL) 30 MG TAB PO ×2 (09:09→21:00)
[2018-12-20] MEDS: AMIODARONE 200 MG TAB PO ×2 (09:09→21:00)
[2018-12-20] MEDS: CLOPIDOGREL 75 MG TAB PO (09:09)
[2018-12-20] MEDS: ESCITALOPRAM 10 MG TAB PO (09:10)
[2018-12-20] MEDS: FUROSEMIDE 20 MG TAB PO (09:10)
[2018-12-20] MEDS: FOLIC ACID 1 MG TAB PO (09:16)
[2018-12-20] MEDS: CEFTRIAXONE 1 GM/50 ML (PMX) 50 ML IVPB (17:00)
[2018-12-20] MEDS: SENNA TAB PO (21:00)
[2018-12-20] MEDS: LORAZEPAM 0.5 MG TAB PO (21:32)
[2018-12-20] MEDS: NITROFURANTOIN (SR) 100 MG CAP PO (21:39)
[2018-12-21] MEDS: PANTOPRAZOLE (EC) 40 MG TAB PO (06:44)
[2018-12-21 07:10] LABS: B-TYPE NATRIURETIC PEPTIDE 803 PG/ML (0-450)
[2018-12-21] MEDS: CLOPIDOGREL 75 MG TAB PO (08:55)
[2018-12-21] MEDS: traMADol 50 MG TAB PO ×3 (08:55→17:49)
[2018-12-21] MEDS: APIXABAN 5 MG TABLET PO ×2 (08:56→21:12)
[2018-12-21] MEDS: CARBIDOPA/LEVODOPA (25/100) TAB PO ×4 (08:56→21:12)
[2018-12-21] MEDS: AMIODARONE 200 MG TAB PO ×2 (08:56→21:00)
[2018-12-21] MEDS: NITROFURANTOIN (SR) 100 MG CAP PO ×2 (09:04→21:11)
[2018-12-21] MEDS: MAGNESIUM OXIDE 400 MG TAB PO (09:05)
[2018-12-21] MEDS: FOLIC ACID 1 MG TAB PO (09:05)
[2018-12-21] MEDS: LUBIPROSTONE 24 MCG CAP PO ×2 (09:05→21:12)
[2018-12-21] MEDS: DOCUSATE SODIUM 100 MG CAP PO ×2 (09:05→21:12)
[2018-12-21] MEDS: NIFEdipine (XL) 30 MG TAB PO ×2 (09:05→21:00)
[2018-12-21] MEDS: ESCITALOPRAM 10 MG TAB PO (09:05)
[2018-12-21] MEDS: FUROSEMIDE 20 MG TAB PO ×2 (09:06→21:11)
[2018-12-21] MEDS: PRAMIPEXOLE 0.25 MG TAB PO ×2 (09:06→21:12)
[2018-12-21] MEDS: METOPROLOL (XL) 50 MG TAB PO ×2 (09:06→21:00)
[2018-12-21] MEDS: LORAZEPAM 0.5 MG TAB PO (21:11)
[2018-12-21] MEDS: SENNA TAB PO (21:12)
[2018-12-22] MEDS: PANTOPRAZOLE (EC) 40 MG TAB PO (06:31)
[2018-12-22] MEDS: PRAMIPEXOLE 0.25 MG TAB PO ×2 (08:42→21:46)
[2018-12-22] MEDS: traMADol 50 MG TAB PO ×3 (08:42→17:26)
[2018-12-22] MEDS: FOLIC ACID 1 MG TAB PO (08:43)
[2018-12-22] MEDS: DOCUSATE SODIUM 100 MG CAP PO ×2 (08:43→21:42)
[2018-12-22] MEDS: ESCITALOPRAM 10 MG TAB PO (08:43)
[2018-12-22] MEDS: MAGNESIUM OXIDE 400 MG TAB PO (08:43)
[2018-12-22] MEDS: FUROSEMIDE 20 MG TAB PO ×2 (08:44→21:46)
[2018-12-22] MEDS: APIXABAN 5 MG TABLET PO ×2 (08:44→21:44)
[2018-12-22] MEDS: AMIODARONE 200 MG TAB PO ×2 (08:44→21:00)
[2018-12-22] MEDS: LUBIPROSTONE 24 MCG CAP PO ×2 (08:45→21:42)
[2018-12-22] MEDS: NITROFURANTOIN (SR) 100 MG CAP PO ×2 (08:45→21:46)
[2018-12-22] MEDS: CLOPIDOGREL 75 MG TAB PO (08:46)
[2018-12-22] MEDS: NIFEdipine (XL) 30 MG TAB PO ×2 (08:46→21:49)
[2018-12-22] MEDS: CARBIDOPA/LEVODOPA (25/100) TAB PO ×4 (08:47→21:49)
[2018-12-22] MEDS: METOPROLOL (XL) 50 MG TAB PO ×2 (08:48→21:00)
[2018-12-22] MEDS ORDERED: LUBIPROSTONE 8 MCG CAPSULE PO (15:00)
[2018-12-22] MEDS: SENNA TAB PO (21:42)
[2018-12-22] MEDS: LORAZEPAM 0.5 MG TAB PO (21:43)
[2018-12-23] MEDS: PANTOPRAZOLE (EC) 40 MG TAB PO (06:16)
[2018-12-23] MEDS: METOPROLOL (XL) 50 MG TAB PO ×2 (08:41→21:00)
[2018-12-23] MEDS: CARBIDOPA/LEVODOPA (25/100) TAB PO ×4 (08:42→21:00)
[2018-12-23] MEDS: MAGNESIUM OXIDE 400 MG TAB PO (08:42)
[2018-12-23] MEDS: DOCUSATE SODIUM 100 MG CAP PO ×2 (08:42→21:01)
[2018-12-23] MEDS: ESCITALOPRAM 10 MG TAB PO (08:42)
[2018-12-23] MEDS: FUROSEMIDE 20 MG TAB PO ×2 (08:42→21:01)
[2018-12-23] MEDS: APIXABAN 5 MG TABLET PO ×2 (08:43→21:01)
[2018-12-23] MEDS: CLOPIDOGREL 75 MG TAB PO (08:43)
[2018-12-23] MEDS: PRAMIPEXOLE 0.25 MG TAB PO ×2 (08:43→21:01)
[2018-12-23] MEDS: AMIODARONE 200 MG TAB PO ×2 (08:43→21:00)
[2018-12-23] MEDS: FOLIC ACID 1 MG TAB PO (08:43)
[2018-12-23] MEDS: NITROFURANTOIN (SR) 100 MG CAP PO ×2 (08:43→21:00)
[2018-12-23] MEDS: LUBIPROSTONE 24 MCG CAP PO ×2 (08:43→21:00)
[2018-12-23] MEDS: NIFEdipine (XL) 30 MG TAB PO ×2 (08:44→21:00)
[2018-12-23] MEDS: LORAZEPAM 0.5 MG TAB PO (21:02)
[2018-12-23] MEDS: SENNA TAB PO (21:02)
[2018-12-24] MEDS: PANTOPRAZOLE (EC) 40 MG TAB PO (06:17)
[2018-12-24 06:49] LABS: ADD MAN DIFF? NO
[2018-12-24 06:49] LABS: WHITE BLOOD COUNT 4.8 10^3/ul (4.8-10.8)
[2018-12-24 06:50] LABS: BASOPHILS % 0.6 % (0.0-2.0); EOSINOPHILS # 0.1 10^3/ul (0.0-0.5); EOSINOPHILS % 1.9 % (0.0-7.0); HEMATOCRIT 35.4 % (37.0-47.0); HEMOGLOBIN 10.8 g/dl (12.0-16.0); LYMPHOCYTES # 2.5 10^3/ul (0.8-2.9); LYMPHOCYTES % 53.4 % (15.0-51.0); MEAN CORPUSCULAR HEMOGLOBIN 24.7 pg (29.0-33.0); MEAN CORPUSCULAR HGB CONC 30.5 g/dl (32.0-37.0); MEAN CORPUSCULAR VOLUME 80.8 fl (82.0-101.0); MEAN PLATELET VOLUME 9.8 fl (7.4-10.4); MONOCYTE # 0.4 10^3/ul (0.3-0.9); MONOCYTES % 8.6 % (0.0-11.0); NEUTROPHIL # 1.7 10^3/ul (1.6-7.5); NEUTROPHILS % 35.3 % (39.0-77.0); PLATELET COUNT 394 10^3/UL (140-415); RED BLOOD COUNT 4.38 10^6/ul (4.20-5.40); RED CELL DISTRIBUTION WIDTH 14.8 % (11.5-14.5)
[2018-12-24 07:26] LABS: ANION GAP 12 (5-13); BLOOD UREA NITROGEN 20 mg/dl (7-20); CALCIUM 9.4 mg/dl (8.4-10.2); CARBON DIOXIDE 28 mmol/L (21-31); CHLORIDE 96 mmol/L (97-110); CREATININE 0.83 mg/dl (0.44-1.00); GLUCOSE 99 mg/dl (70-220); POTASSIUM 4.2 mmol/L (3.5-5.1); SODIUM 136 mmol/L (135-144)
[2018-12-24] MEDS: ESCITALOPRAM 10 MG TAB PO (08:41)
[2018-12-24] MEDS: MAGNESIUM OXIDE 400 MG TAB PO (08:41)
[2018-12-24] MEDS: NITROFURANTOIN (SR) 100 MG CAP PO ×2 (08:41→20:51)
[2018-12-24] MEDS: PRAMIPEXOLE 0.25 MG TAB PO ×2 (08:41→20:50)
[2018-12-24] MEDS: FUROSEMIDE 20 MG TAB PO ×2 (08:42→20:50)
[2018-12-24] MEDS: DOCUSATE SODIUM 100 MG CAP PO ×2 (08:42→20:51)
[2018-12-24] MEDS: METOPROLOL (XL) 50 MG TAB PO ×2 (08:42→21:00)
[2018-12-24] MEDS: APIXABAN 5 MG TABLET PO ×2 (08:42→20:54)
[2018-12-24] MEDS: CARBIDOPA/LEVODOPA (25/100) TAB PO ×4 (08:43→20:52)
[2018-12-24] MEDS: AMIODARONE 200 MG TAB PO ×2 (08:43→20:51)
[2018-12-24] MEDS: FOLIC ACID 1 MG TAB PO (08:54)
[2018-12-24] MEDS: NIFEdipine (XL) 30 MG TAB PO ×2 (08:54→20:54)
[2018-12-24] MEDS: CLOPIDOGREL 75 MG TAB PO (08:54)
[2018-12-24] MEDS: LUBIPROSTONE 24 MCG CAP PO ×2 (08:54→20:51)
[2018-12-24] MEDS: traMADol 50 MG TAB PO ×3 (08:55→17:35)
[2018-12-24] MEDS: SENNA TAB PO (20:50)
[2018-12-24] MEDS: LORAZEPAM 0.5 MG TAB PO (20:50)
[2018-12-25] MEDS: PANTOPRAZOLE (EC) 40 MG TAB PO (06:15)
[2018-12-25] MEDS: LUBIPROSTONE 24 MCG CAP PO ×2 (08:44→21:00)
[2018-12-25] MEDS: FOLIC ACID 1 MG TAB PO (08:44)
[2018-12-25] MEDS: NITROFURANTOIN (SR) 100 MG CAP PO ×2 (08:44→21:26)
[2018-12-25] MEDS: MAGNESIUM OXIDE 400 MG TAB PO (08:44)
[2018-12-25] MEDS: DOCUSATE SODIUM 100 MG CAP PO ×2 (08:44→21:00)
[2018-12-25] MEDS: ESCITALOPRAM 10 MG TAB PO (08:44)
[2018-12-25] MEDS: CLOPIDOGREL 75 MG TAB PO (08:45)
[2018-12-25] MEDS: PRAMIPEXOLE 0.25 MG TAB PO ×2 (08:45→21:26)
[2018-12-25] MEDS: NIFEdipine (XL) 30 MG TAB PO ×2 (08:45→21:00)
[2018-12-25] MEDS: FUROSEMIDE 20 MG TAB PO ×2 (08:45→21:00)
[2018-12-25] MEDS: METOPROLOL (XL) 50 MG TAB PO ×2 (08:45→21:00)
[2018-12-25] MEDS: CARBIDOPA/LEVODOPA (25/100) TAB PO ×4 (08:45→21:26)
[2018-12-25] MEDS: AMIODARONE 200 MG TAB PO ×2 (08:46→21:00)
[2018-12-25] MEDS: APIXABAN 5 MG TABLET PO ×2 (08:46→21:26)
[2018-12-25] MEDS: SENNA TAB PO (21:00)
[2018-12-25] MEDS: LORAZEPAM 0.5 MG TAB PO (21:26)
[2018-12-26] MEDS: PANTOPRAZOLE (EC) 40 MG TAB PO (06:03)
[2018-12-26] MEDS: CARBIDOPA/LEVODOPA (25/100) TAB PO ×4 (09:00→21:14)
[2018-12-26] MEDS: METOPROLOL (XL) 50 MG TAB PO ×2 (09:00→21:00)
[2018-12-26] MEDS: NIFEdipine (XL) 30 MG TAB PO (09:00)
[2018-12-26] MEDS: FUROSEMIDE 20 MG TAB PO ×2 (09:00→21:00)
[2018-12-26] MEDS: AMIODARONE 200 MG TAB PO ×2 (09:00→21:00)
[2018-12-26] MEDS: MAGNESIUM OXIDE 400 MG TAB PO (10:43)
[2018-12-26] MEDS: DOCUSATE SODIUM 100 MG CAP PO ×2 (10:43→21:00)
[2018-12-26] MEDS: FOLIC ACID 1 MG TAB PO (10:43)
[2018-12-26] MEDS: APIXABAN 5 MG TABLET PO ×2 (10:44→21:13)
[2018-12-26] MEDS: ESCITALOPRAM 10 MG TAB PO (10:44)
[2018-12-26] MEDS: LUBIPROSTONE 24 MCG CAP PO ×2 (10:45→21:00)
[2018-12-26] MEDS: NITROFURANTOIN (SR) 100 MG CAP PO ×2 (10:45→21:13)
[2018-12-26] MEDS: PRAMIPEXOLE 0.25 MG TAB PO ×2 (10:45→21:13)
[2018-12-26] MEDS: CLOPIDOGREL 75 MG TAB PO (10:45)
[2018-12-26] MEDS: traMADol 50 MG TAB PO (16:18)
[2018-12-26] MEDS: SENNA TAB PO (21:00)
[2018-12-26] MEDS: LORAZEPAM 0.5 MG TAB PO (21:13)
[2018-12-27] MEDS: PANTOPRAZOLE (EC) 40 MG TAB PO (06:42)
[2018-12-27] MEDS: FUROSEMIDE 20 MG TAB PO ×2 (09:06→21:09)
[2018-12-27] MEDS: LUBIPROSTONE 24 MCG CAP PO ×2 (09:06→21:09)
[2018-12-27] MEDS: CLOPIDOGREL 75 MG TAB PO (09:06)
[2018-12-27] MEDS: PRAMIPEXOLE 0.25 MG TAB PO ×2 (09:06→21:09)
[2018-12-27] MEDS: MAGNESIUM OXIDE 400 MG TAB PO (09:06)
[2018-12-27] MEDS: NITROFURANTOIN (SR) 100 MG CAP PO (09:06)
[2018-12-27] MEDS: NIFEdipine (XL) 30 MG TAB PO (09:07)
[2018-12-27] MEDS: CARBIDOPA/LEVODOPA (25/100) TAB PO ×4 (09:07→21:09)
[2018-12-27] MEDS: FOLIC ACID 1 MG TAB PO (09:07)
[2018-12-27] MEDS: ESCITALOPRAM 10 MG TAB PO (09:07)
[2018-12-27] MEDS: APIXABAN 5 MG TABLET PO ×2 (09:07→21:10)
[2018-12-27] MEDS: DOCUSATE SODIUM 100 MG CAP PO ×2 (09:07→21:10)
[2018-12-27] MEDS: AMIODARONE 200 MG TAB PO ×2 (09:07→21:00)
[2018-12-27] MEDS: METOPROLOL (XL) 50 MG TAB PO ×2 (09:08→21:00)
[2018-12-27] MEDS: SENNA TAB PO (21:09)
[2018-12-27] MEDS: LORAZEPAM 0.5 MG TAB PO (21:09)
[2018-12-28] MEDS: PANTOPRAZOLE (EC) 40 MG TAB PO (06:38)
[2018-12-28] MEDS: FOLIC ACID 1 MG TAB PO (08:42)
[2018-12-28] MEDS: ESCITALOPRAM 10 MG TAB PO (08:42)
[2018-12-28] MEDS: FUROSEMIDE 20 MG TAB PO ×2 (08:42→20:28)
[2018-12-28] MEDS: LUBIPROSTONE 24 MCG CAP PO ×2 (08:42→20:27)
[2018-12-28] MEDS: DOCUSATE SODIUM 100 MG CAP PO ×2 (08:43→20:26)
[2018-12-28] MEDS: CLOPIDOGREL 75 MG TAB PO (08:43)
[2018-12-28] MEDS: MAGNESIUM OXIDE 400 MG TAB PO (08:43)
[2018-12-28] MEDS: AMIODARONE 200 MG TAB PO ×2 (08:43→20:40)
[2018-12-28] MEDS: PRAMIPEXOLE 0.25 MG TAB PO ×2 (08:43→20:27)
[2018-12-28] MEDS: APIXABAN 5 MG TABLET PO ×2 (08:44→20:24)
[2018-12-28] MEDS: CARBIDOPA/LEVODOPA (25/100) TAB PO ×4 (08:44→20:26)
[2018-12-28] MEDS: METOPROLOL (XL) 50 MG TAB PO ×2 (08:44→20:39)
[2018-12-28] MEDS: NIFEdipine (XL) 30 MG TAB PO (08:45)
[2018-12-28] MEDS: LORAZEPAM 0.5 MG TAB PO (20:28)
[2018-12-28] MEDS: SENNA TAB PO (20:40)
[2018-12-29] MEDS: PANTOPRAZOLE (EC) 40 MG TAB PO (06:21)
[2018-12-29] MEDS: MAGNESIUM HYDROXIDE 30ML CUP PO (08:24)
[2018-12-29] MEDS: FUROSEMIDE 20 MG TAB PO ×2 (08:26→20:19)
[2018-12-29] MEDS: LUBIPROSTONE 24 MCG CAP PO ×2 (08:27→20:23)
[2018-12-29] MEDS: MAGNESIUM OXIDE 400 MG TAB PO (08:27)
[2018-12-29] MEDS: AMIODARONE 200 MG TAB PO ×2 (08:27→20:20)
[2018-12-29] MEDS: FOLIC ACID 1 MG TAB PO (08:28)
[2018-12-29] MEDS: ESCITALOPRAM 10 MG TAB PO (08:28)
[2018-12-29] MEDS: APIXABAN 5 MG TABLET PO ×2 (08:28→20:19)
[2018-12-29] MEDS: CLOPIDOGREL 75 MG TAB PO (08:29)
[2018-12-29] MEDS: PRAMIPEXOLE 0.25 MG TAB PO ×2 (08:29→20:19)
[2018-12-29] MEDS: CARBIDOPA/LEVODOPA (25/100) TAB PO ×4 (08:29→20:18)
[2018-12-29] MEDS: NIFEdipine (XL) 30 MG TAB PO (08:29)
[2018-12-29] MEDS: METOPROLOL (XL) 50 MG TAB PO (08:30)
[2018-12-29] MEDS: DOCUSATE SODIUM 100 MG CAP PO ×2 (08:30→20:19)
[2018-12-29] MEDS: LORAZEPAM 0.5 MG TAB PO (20:19)
[2018-12-29] MEDS: SENNA TAB PO (21:00)
[2018-12-29] MEDS: METOPROLOL (XL) 25 MG TAB PO (21:00)
[2018-12-30] MEDS: PANTOPRAZOLE (EC) 40 MG TAB PO (06:07)
[2018-12-30 06:20] LABS: ADD MAN DIFF? NO
[2018-12-30 06:25] LABS: BASOPHILS % 0.6 % (0.0-2.0); EOSINOPHILS # 0.1 10^3/ul (0.0-0.5); EOSINOPHILS % 1.8 % (0.0-7.0); HEMATOCRIT 30.3 % (37.0-47.0); HEMOGLOBIN 9.3 g/dl (12.0-16.0); LYMPHOCYTES # 2.7 10^3/ul (0.8-2.9); LYMPHOCYTES % 54.5 % (15.0-51.0); MEAN CORPUSCULAR HEMOGLOBIN 25.3 pg (29.0-33.0); MEAN CORPUSCULAR HGB CONC 30.7 g/dl (32.0-37.0); MEAN CORPUSCULAR VOLUME 82.3 fl (82.0-101.0); MEAN PLATELET VOLUME 9.3 fl (7.4-10.4); MONOCYTE # 0.5 10^3/ul (0.3-0.9); MONOCYTES % 9.2 % (0.0-11.0); NEUTROPHIL # 1.7 10^3/ul (1.6-7.5); NEUTROPHILS % 33.7 % (39.0-77.0); PLATELET COUNT 341 10^3/UL (140-415); RED BLOOD COUNT 3.68 10^6/ul (4.20-5.40); RED CELL DISTRIBUTION WIDTH 15.9 % (11.5-14.5)
[2018-12-30 06:25] LABS: WHITE BLOOD COUNT 4.9 10^3/ul (4.8-10.8)
[2018-12-30 07:27] LABS: ADD UMIC YES; UR AMORPHOUS CRYSTAL FEW /HPF (NONE SEEN); UR ASCORBIC ACID NEGATIVE (NEGATIVE); UR BACTERIA FEW /HPF (NONE SEEN); UR BILIRUBIN (Dip) NEGATIVE (NEGATIVE); UR BLOOD (Dip) 1+ mg/dL (NEGATIVE); UR CLARITY CLOUDY (CLEAR); UR COLOR YELLOW (YELLOW); UR GLUCOSE (Dip) NEGATIVE (NEGATIVE); UR KETONES (Dip) TRACE mg/dL (NEGATIVE); UR LEUKOCYTE ESTERASE (Dip) 3+ Leu/ul (NEGATIVE); UR MUCUS MODERATE /HPF (NONE SEEN); UR NITRITE (Dip) NEGATIVE (NEGATIVE); UR RBC 2 /HPF (0-5); UR SPECIFIC GRAVITY (Dip) 1.017 (1.003-1.030); UR SQUAMOUS EPITHELIAL CELL FEW /HPF (FEW); UR TOTAL PROTEIN (Dip) NEGATIVE (NEGATIVE); UR UROBILINOGEN (Dip) 1+ mg/dL (NEGATIVE); UR WBC 27 /HPF (0-5)
[2018-12-30] MEDS: DOCUSATE SODIUM 100 MG CAP PO ×2 (08:16→21:00)
[2018-12-30] MEDS: APIXABAN 5 MG TABLET PO ×2 (08:16→20:41)
[2018-12-30] MEDS: CARBIDOPA/LEVODOPA (25/100) TAB PO ×4 (08:16→20:38)
[2018-12-30] MEDS: traMADol 50 MG TAB PO ×3 (08:17→17:49)
[2018-12-30] MEDS: METOPROLOL (XL) 25 MG TAB PO ×2 (09:00→20:39)
[2018-12-30] MEDS: NIFEdipine (XL) 30 MG TAB PO (09:00)
[2018-12-30] MEDS: PRAMIPEXOLE 0.25 MG TAB PO ×2 (09:15→20:39)
[2018-12-30] MEDS: LUBIPROSTONE 24 MCG CAP PO ×2 (09:15→20:41)
[2018-12-30] MEDS: ESCITALOPRAM 10 MG TAB PO (09:16)
[2018-12-30] MEDS: AMIODARONE 200 MG TAB PO ×2 (09:19→20:40)
[2018-12-30] MEDS: FUROSEMIDE 20 MG TAB PO ×2 (09:20→20:40)
[2018-12-30] MEDS: FOLIC ACID 1 MG TAB PO (09:21)
[2018-12-30] MEDS: MAGNESIUM OXIDE 400 MG TAB PO (09:23)
[2018-12-30] MEDS: POLYSACCHARIDE IRON COMPLEX CAP PO (20:40)
[2018-12-30] MEDS: LORAZEPAM 0.5 MG TAB PO (20:41)
[2018-12-30] MEDS: SENNA TAB PO (21:00)
[2018-12-31] MEDS: PANTOPRAZOLE (EC) 40 MG TAB PO (06:30)
[2018-12-31 07:43] LABS: IRON 34 ug/dl (35-150)
[2018-12-31 07:52] LABS: % IRON SATURATION 8 % SAT (22-52); TOTAL IRON BINDING CAPACITY 415 ug/dl (241-421)
[2018-12-31] MEDS: DOCUSATE SODIUM 100 MG CAP PO ×2 (09:00→21:15)
[2018-12-31] MEDS: FOLIC ACID 1 MG TAB PO (09:38)
[2018-12-31] MEDS: APIXABAN 5 MG TABLET PO ×2 (09:38→21:15)
[2018-12-31] MEDS: AMIODARONE 200 MG TAB PO ×2 (09:38→21:00)
[2018-12-31] MEDS: CARBIDOPA/LEVODOPA (25/100) TAB PO ×4 (09:39→21:15)
[2018-12-31] MEDS: ESCITALOPRAM 10 MG TAB PO (09:39)
[2018-12-31] MEDS: METOPROLOL (XL) 25 MG TAB PO ×2 (09:39→21:00)
[2018-12-31] MEDS: MAGNESIUM OXIDE 400 MG TAB PO (09:39)
[2018-12-31] MEDS: PRAMIPEXOLE 0.25 MG TAB PO ×2 (09:39→21:15)
[2018-12-31] MEDS: FUROSEMIDE 20 MG TAB PO ×2 (09:39→21:00)
[2018-12-31] MEDS: POLYSACCHARIDE IRON COMPLEX CAP PO ×2 (09:39→21:15)
[2018-12-31] MEDS: NIFEdipine (XL) 30 MG TAB PO (09:40)
[2018-12-31] MEDS: LUBIPROSTONE 24 MCG CAP PO ×2 (16:19→21:15)
[2018-12-31] MEDS: SENNA TAB PO (21:15)
[2018-12-31] MEDS: LORAZEPAM 0.5 MG TAB PO (21:15)
[2019-01-01] MEDS: PANTOPRAZOLE (EC) 40 MG TAB PO (06:43)
[2019-01-01] MEDS: CARBIDOPA/LEVODOPA (25/100) TAB PO ×4 (08:44→21:45)
[2019-01-01] MEDS: PRAMIPEXOLE 0.25 MG TAB PO ×2 (08:44→21:46)
[2019-01-01] MEDS: APIXABAN 5 MG TABLET PO ×2 (08:44→21:46)
[2019-01-01] MEDS: FUROSEMIDE 20 MG TAB PO ×2 (08:44→21:46)
[2019-01-01] MEDS: DOCUSATE SODIUM 100 MG CAP PO ×2 (08:44→21:46)
[2019-01-01] MEDS: MAGNESIUM OXIDE 400 MG TAB PO (08:44)
[2019-01-01] MEDS: ESCITALOPRAM 10 MG TAB PO (08:45)
[2019-01-01] MEDS: LUBIPROSTONE 24 MCG CAP PO ×2 (08:45→21:45)
[2019-01-01] MEDS: NIFEdipine (XL) 30 MG TAB PO (08:45)
[2019-01-01] MEDS: POLYSACCHARIDE IRON COMPLEX CAP PO ×2 (08:46→21:46)
[2019-01-01] MEDS: FOLIC ACID 1 MG TAB PO (08:46)
[2019-01-01] MEDS: METOPROLOL (XL) 25 MG TAB PO (08:46)
[2019-01-01] MEDS: AMIODARONE 200 MG TAB PO (08:47)
[2019-01-01] MEDS: ACETAMINOPHEN 325 MG TAB PO (15:34)
[2019-01-01] MEDS: LORAZEPAM 0.5 MG TAB PO (21:45)
[2019-01-01] MEDS: SENNA TAB PO (21:45)
[2019-01-02] MEDS: traMADol 50 MG TAB PO ×2 (03:36→03:37)
[2019-01-02] MEDS: PANTOPRAZOLE (EC) 40 MG TAB PO (06:34)
[2019-01-02] MEDS: LUBIPROSTONE 24 MCG CAP PO (08:40)
[2019-01-02] MEDS: FOLIC ACID 1 MG TAB PO (08:40)
[2019-01-02] MEDS: DOCUSATE SODIUM 100 MG CAP PO (08:40)
[2019-01-02] MEDS: ESCITALOPRAM 10 MG TAB PO (08:40)
[2019-01-02] MEDS: PRAMIPEXOLE 0.25 MG TAB PO (08:41)
[2019-01-02] MEDS: POLYSACCHARIDE IRON COMPLEX CAP PO (08:41)
[2019-01-02] MEDS: AMIODARONE 200 MG TAB PO (08:41)
[2019-01-02] MEDS: APIXABAN 5 MG TABLET PO (08:42)
[2019-01-02] MEDS: FUROSEMIDE 20 MG TAB PO (08:42)
[2019-01-02] MEDS: CARBIDOPA/LEVODOPA (25/100) TAB PO (08:42)
[2019-01-02] MEDS: MAGNESIUM OXIDE 400 MG TAB PO (08:48)
[2019-01-02] MEDS: NIFEdipine (XL) 30 MG TAB PO (08:52)
[2019-01-02] MEDS: METOPROLOL (XL) 25 MG TAB PO (09:00)
[2019-01-02] MEDS: ACETAMINOPHEN 325 MG TAB PO (11:37)
== END 2019-01-02 13:16 | disposition home health service (06) | DRG 57 ==
LOC: VRC 18:10
PROC: F07Z5ZZ Bed Mobility Treatment (ICD-10-PCS; principal; 2018-12-17)
PROC: F08Z2ZZ Grooming/Personal Hygiene Treatment (ICD-10-PCS; 2018-12-17)
PROC: F06Z6ZZ Communicative/Cognitive Integration Skills Treatment (ICD-10-PCS; 2018-12-17)
DX: I69.351 Hemiplegia and hemiparesis following cerebral infarction affecting right dominant side (principal); N39.0 Urinary tract infection, site not specified; I69.391 Dysphagia following cerebral infarction; I10 Essential (primary) hypertension; E78.5 Hyperlipidemia, unspecified; D64.9 Anemia, unspecified; R26.9 Unspecified abnormalities of gait and mobility; G31.83 Neurocognitive disorder with Lewy bodies; F02.80 Dementia in other diseases classified elsewhere, unspecified severity, without behavioral disturbance, psychotic disturbance, mood disturbance, and anxiety; I48.0 Paroxysmal atrial fibrillation; F01.50 Vascular dementia, unspecified severity, without behavioral disturbance, psychotic disturbance, mood disturbance, and anxiety
CPT/HCPCS: 80048; 80053; 80061; 81001; 83540; 83880; 85025; 87081; 87086; 92507; 92523; 92610; 93005; 97110; 97112; 97116; 97163; 97167; 97530; 97535; 97542

== ENCOUNTER 2019-05-14 08:49 | Inpatient (IN) | payer MEDICARE, OTHER ==
[2019-05-14 09:32] LABS: ADD MAN DIFF? NO
[2019-05-14 09:37] LABS: BASOPHILS % 0.3 % (0.0-2.0); HEMATOCRIT 38.6 % (37.0-47.0); HEMOGLOBIN 11.5 g/dl (12.0-16.0); LYMPHOCYTES # 2.8 10^3/ul (0.8-2.9); LYMPHOCYTES % 31.4 % (15.0-51.0); MEAN CORPUSCULAR HEMOGLOBIN 24.1 pg (29.0-33.0); MEAN CORPUSCULAR HGB CONC 29.8 g/dl (32.0-37.0); MEAN CORPUSCULAR VOLUME 80.8 fl (82.0-101.0); MONOCYTE # 0.6 10^3/ul (0.3-0.9); MONOCYTES % 6.5 % (0.0-11.0); NEUTROPHIL # 5.4 10^3/ul (1.6-7.5); NEUTROPHILS % 61.5 % (39.0-77.0); PLATELET COUNT 458 10^3/UL (140-415); RED BLOOD COUNT 4.78 10^6/ul (4.20-5.40); RED CELL DISTRIBUTION WIDTH 15.1 % (11.5-14.5)
[2019-05-14 09:37] LABS: WHITE BLOOD COUNT 8.8 10^3/ul (4.8-10.8)
[2019-05-14 09:55] LABS: ANION GAP 10 (5-13); BLOOD UREA NITROGEN 29 mg/dl (7-20); CALCIUM 9.5 mg/dl (8.4-10.2); CARBON DIOXIDE 29 mmol/L (21-31); CHLORIDE 100 mmol/L (97-110); CREATININE 1.19 mg/dl (0.44-1.00); GLUCOSE 149 mg/dl (70-220); POTASSIUM 4.2 mmol/L (3.5-5.1); SODIUM 139 mmol/L (135-144)
[2019-05-14] MEDS: CARBIDOPA/LEVODOPA (25/100) TAB PO ×2 (12:16→21:31)
[2019-05-14] MEDS: ACETAMINOPHEN 325 MG TAB PO ×2 (12:16→16:51)
[2019-05-14] MEDS ORDERED: ONDANSETRON 4 MG INJ IV (12:30)
[2019-05-14] MEDS ORDERED: DICLOFENAC SODIUM 1% GEL 100 GM TUBE TP (13:30)
[2019-05-14] MEDS ORDERED: ALBUTEROL/IPRATROPIUM (NEB) 3 ML AMP HHN (13:30)
[2019-05-14] MEDS: FLUTICASONE 0.05% 16 GM NAS SPRAY NASAL ×2 (13:30→21:00)
[2019-05-14] MEDS ORDERED: ALBUTEROL 18 GM INHALER INH (13:30)
[2019-05-14] MEDS ORDERED: DOCUSATE SODIUM 100 MG CAP PO (13:30)
[2019-05-14 13:43] LABS: CREATINE KINASE 561 IU/L (23-200)
[2019-05-14] MEDS: LOSARTAN 25 MG TAB PO (14:00)
[2019-05-14] MEDS: MAGNESIUM OXIDE 400 MG TAB PO ×2 (14:00→20:34)
[2019-05-14 14:28] LABS: CK INDEX 0.4
[2019-05-14 14:29] LABS: CK-MB 2.42 ng/ml (0.0-2.4)
[2019-05-14] MEDS: AMLODIPINE 5 MG TAB PO ×2 (14:30→20:39)
[2019-05-14 14:32] LABS: TROPONIN-I 0.295 ng/ml (0.000-0.120)
[2019-05-14] MEDS: AMIODARONE 200 MG TAB PO ×2 (15:00→20:39)
[2019-05-14] MEDS: FUROSEMIDE 20 MG TAB PO ×2 (15:30→20:39)
[2019-05-14 15:42] LABS: CREATINE KINASE 411 IU/L (23-200)
[2019-05-14 15:56] LABS: CK INDEX 0.5; CK-MB 2.02 ng/ml (0.0-2.4)
[2019-05-14 16:01] LABS: TROPONIN-I 0.294 ng/ml (0.000-0.120)
[2019-05-14 20:20] LABS: TROPONIN-I 0.219 ng/ml (0.000-0.120)
[2019-05-14] MEDS: FERROUS SULFATE (EC) 325 MG TAB PO (20:34)
[2019-05-14] MEDS: APIXABAN 5 MG TABLET PO (20:34)
[2019-05-14] MEDS: PRAMIPEXOLE 0.25 MG TAB PO (23:31)
[2019-05-15] MEDS: ACETAMINOPHEN 325 MG TAB PO (00:02)
[2019-05-15 01:05] LABS: TROPONIN-I 0.134 ng/ml (0.000-0.120)
[2019-05-15] MEDS ORDERED: ALBUTEROL HFA 8 GM INHALER INH (05:00)
[2019-05-15] MEDS: PANTOPRAZOLE (EC) 40 MG TAB PO (06:21)
[2019-05-15] MEDS: AMIODARONE 200 MG TAB PO ×2 (08:11→20:22)
[2019-05-15] MEDS: FLUTICASONE 0.05% 16 GM NAS SPRAY NASAL ×2 (08:11→20:21)
[2019-05-15] MEDS: DONEPEZIL 10 MG TAB PO (08:11)
[2019-05-15] MEDS: APIXABAN 5 MG TABLET PO ×2 (08:12→20:22)
[2019-05-15] MEDS: FERROUS SULFATE (EC) 325 MG TAB PO ×2 (08:12→20:22)
[2019-05-15] MEDS: FOLIC ACID 1 MG TAB PO (08:12)
[2019-05-15] MEDS: MAGNESIUM OXIDE 400 MG TAB PO ×2 (08:12→20:22)
[2019-05-15] MEDS: LOSARTAN 25 MG TAB PO (08:12)
[2019-05-15] MEDS: FUROSEMIDE 20 MG TAB PO ×2 (08:12→20:23)
[2019-05-15] MEDS: CLOPIDOGREL 75 MG TAB PO (08:13)
[2019-05-15] MEDS: PRAMIPEXOLE 0.25 MG TAB PO ×3 (08:13→20:21)
[2019-05-15] MEDS: AMLODIPINE 5 MG TAB PO ×2 (08:13→20:23)
[2019-05-15] MEDS: CARBIDOPA/LEVODOPA (25/100) TAB PO ×3 (08:13→20:22)
[2019-05-15 08:58] LABS: ALANINE AMINOTRANSFERASE 15 IU/L (13-69); ALBUMIN 4.1 g/dl (3.3-4.9); ALBUMIN/GLOBULIN RATIO 1.02; ALKALINE PHOSPHATASE 134 IU/L (42-121); ANION GAP 7 (5-13); ASPARTATE AMINO TRANSFERASE 47 IU/L (15-46); BILIRUBIN,INDIRECT 0.9 mg/dl (0-1.1); BILIRUBIN,TOTAL 0.9 mg/dl (0.2-1.3); BLOOD UREA NITROGEN 24 mg/dl (7-20); CALCIUM 9.2 mg/dl (8.4-10.2); CARBON DIOXIDE 25 mmol/L (21-31); CHLORIDE 102 mmol/L (97-110); CREATININE 0.96 mg/dl (0.44-1.00); GLUCOSE 96 mg/dl (70-220); MAGNESIUM 2.1 mg/dl (1.7-2.5); PHOSPHORUS 3.7 mg/dl (2.5-4.9); POTASSIUM 5.1 mmol/L (3.5-5.1); SODIUM 134 mmol/L (135-144); TOTAL PROTEIN 8.1 g/dl (6.1-8.1)
[2019-05-15] MEDS ORDERED: DONEPEZIL 5 MG TAB PO (09:00)
[2019-05-15] MEDS ORDERED: ASPIRIN (EC) 81 MG TAB PO (09:00)
[2019-05-15 13:58] LABS: FREE THYROXINE INDEX (Calc) 4.64 ug/ml (0.65-3.89); T3 UPTAKE 34.1 % (23.5-40.5)
[2019-05-15 14:00] LABS: T4 (THYROXINE) 13.6 ug/dl (5.5-11.0)
[2019-05-15] MEDS: BACLOFEN 10 MG TAB PO (14:58)
[2019-05-15] MEDS: LORAZEPAM 1 MG TAB PO ×2 (20:21→23:52)
[2019-05-16] MEDS: PANTOPRAZOLE (EC) 40 MG TAB PO (05:35)
[2019-05-16] MEDS: FLUTICASONE 0.05% 16 GM NAS SPRAY NASAL ×2 (09:45→20:23)
[2019-05-16] MEDS: CLOPIDOGREL 75 MG TAB PO (09:46)
[2019-05-16] MEDS: PRAMIPEXOLE 0.25 MG TAB PO ×3 (09:46→20:23)
[2019-05-16] MEDS: LOSARTAN 25 MG TAB PO (09:46)
[2019-05-16] MEDS: CARBIDOPA/LEVODOPA (25/100) TAB PO ×3 (09:46→20:24)
[2019-05-16] MEDS: AMLODIPINE 5 MG TAB PO (09:46)
[2019-05-16] MEDS: AMIODARONE 200 MG TAB PO ×2 (09:47→20:23)
[2019-05-16] MEDS: FUROSEMIDE 20 MG TAB PO ×2 (09:47→20:24)
[2019-05-16] MEDS: MAGNESIUM OXIDE 400 MG TAB PO ×2 (09:47→20:24)
[2019-05-16] MEDS: FOLIC ACID 1 MG TAB PO (09:47)
[2019-05-16] MEDS: APIXABAN 5 MG TABLET PO ×2 (09:47→20:24)
[2019-05-16] MEDS: FERROUS SULFATE (EC) 325 MG TAB PO ×2 (09:47→20:24)
[2019-05-16] MEDS: DONEPEZIL 10 MG TAB PO (09:47)
[2019-05-16 17:31] LABS: ADD UMIC YES; UR ASCORBIC ACID NEGATIVE (NEGATIVE); UR BACTERIA FEW /HPF (NONE SEEN); UR BILIRUBIN (Dip) NEGATIVE (NEGATIVE); UR BLOOD (Dip) NEGATIVE (NEGATIVE); UR CLARITY SLIGHTLY CLOUDY (CLEAR); UR COLOR YELLOW (YELLOW); UR GLUCOSE (Dip) NEGATIVE (NEGATIVE); UR KETONES (Dip) TRACE mg/dL (NEGATIVE); UR LEUKOCYTE ESTERASE (Dip) TRACE Leu/ul (NEGATIVE); UR NITRITE (Dip) POSITIVE (NEGATIVE); UR RBC 0 /HPF (0-5); UR SPECIFIC GRAVITY (Dip) 1.013 (1.003-1.030); UR TOTAL PROTEIN (Dip) NEGATIVE (NEGATIVE); UR UROBILINOGEN (Dip) NEGATIVE (NEGATIVE); UR WBC 7 /HPF (0-5)
[2019-05-16] MEDS: LORAZEPAM 1 MG TAB PO (21:36)
[2019-05-17] MEDS: PANTOPRAZOLE (EC) 40 MG TAB PO (05:17)
[2019-05-17] MEDS: FLUTICASONE 0.05% 16 GM NAS SPRAY NASAL ×2 (08:47→20:52)
[2019-05-17] MEDS: MAGNESIUM OXIDE 400 MG TAB PO ×2 (08:47→20:51)
[2019-05-17] MEDS: FOLIC ACID 1 MG TAB PO (08:48)
[2019-05-17] MEDS: PRAMIPEXOLE 0.25 MG TAB PO ×3 (08:48→20:51)
[2019-05-17] MEDS: APIXABAN 5 MG TABLET PO ×2 (08:48→20:51)
[2019-05-17] MEDS: CLOPIDOGREL 75 MG TAB PO (08:49)
[2019-05-17] MEDS: DONEPEZIL 10 MG TAB PO (08:49)
[2019-05-17] MEDS: AMIODARONE 200 MG TAB PO ×2 (08:49→21:00)
[2019-05-17] MEDS: FERROUS SULFATE (EC) 325 MG TAB PO ×2 (08:49→20:51)
[2019-05-17] MEDS: CARBIDOPA/LEVODOPA (25/100) TAB PO ×3 (08:49→20:51)
[2019-05-17] MEDS: AMLODIPINE 5 MG TAB PO (08:50)
[2019-05-17] MEDS: FUROSEMIDE 20 MG TAB PO ×2 (08:50→20:52)
[2019-05-17] MEDS: ONDANSETRON 4 MG INJ IV (08:50)
[2019-05-17] MEDS: LOSARTAN 25 MG TAB PO (09:00)
[2019-05-17] MEDS: REGADENOSON 0.4 MG/5 ML SYG (12:01)
[2019-05-17] MEDS: CIPROFLOXACIN 250 MG TAB PO (18:00)
[2019-05-18] MEDS: PANTOPRAZOLE (EC) 40 MG TAB PO (05:46)
[2019-05-18] MEDS: CIPROFLOXACIN 250 MG TAB PO ×2 (05:46→17:40)
[2019-05-18] MEDS: DONEPEZIL 10 MG TAB PO (08:32)
[2019-05-18] MEDS: FLUTICASONE 0.05% 16 GM NAS SPRAY NASAL ×2 (08:32→20:49)
[2019-05-18] MEDS: PRAMIPEXOLE 0.25 MG TAB PO ×3 (08:33→20:50)
[2019-05-18] MEDS: FUROSEMIDE 20 MG TAB PO ×2 (08:33→20:50)
[2019-05-18] MEDS: MAGNESIUM OXIDE 400 MG TAB PO ×2 (08:33→20:51)
[2019-05-18] MEDS: FOLIC ACID 1 MG TAB PO (08:33)
[2019-05-18] MEDS: FERROUS SULFATE (EC) 325 MG TAB PO ×2 (08:33→20:50)
[2019-05-18] MEDS: CARBIDOPA/LEVODOPA (25/100) TAB PO ×3 (08:33→20:50)
[2019-05-18] MEDS: LOSARTAN 25 MG TAB PO (08:33)
[2019-05-18] MEDS: AMIODARONE 200 MG TAB PO ×2 (08:34→20:52)
[2019-05-18] MEDS: APIXABAN 5 MG TABLET PO ×2 (08:34→20:51)
[2019-05-18] MEDS: CLOPIDOGREL 75 MG TAB PO (08:34)
[2019-05-18] MEDS: AMLODIPINE 5 MG TAB PO (08:34)
[2019-05-18] MEDS: LORAZEPAM 1 MG TAB PO ×2 (14:49→22:50)
[2019-05-18] MEDS: BARIUM SULFATE 135 ML (E-Z HD) PO (16:23)
[2019-05-19] MEDS: PANTOPRAZOLE (EC) 40 MG TAB PO (05:45)
[2019-05-19] MEDS: CIPROFLOXACIN 250 MG TAB PO (05:45)
[2019-05-19 07:29] LABS: ADD MAN DIFF? NO
[2019-05-19 07:33] LABS: BASOPHILS % 0.5 % (0.0-2.0); HEMATOCRIT 33.7 % (37.0-47.0); HEMOGLOBIN 9.9 g/dl (12.0-16.0); LYMPHOCYTES # 2.3 10^3/ul (0.8-2.9); LYMPHOCYTES % 38.2 % (15.0-51.0); MEAN CORPUSCULAR HEMOGLOBIN 24.7 pg (29.0-33.0); MEAN CORPUSCULAR HGB CONC 29.4 g/dl (32.0-37.0); MEAN PLATELET VOLUME 9.3 fl (7.4-10.4); MONOCYTE # 0.7 10^3/ul (0.3-0.9); MONOCYTES % 10.6 % (0.0-11.0); NEUTROPHIL # 3.1 10^3/ul (1.6-7.5); NEUTROPHILS % 50.4 % (39.0-77.0); PLATELET COUNT 389 10^3/UL (140-415); RED BLOOD COUNT 4.01 10^6/ul (4.20-5.40); RED CELL DISTRIBUTION WIDTH 16.1 % (11.5-14.5)
[2019-05-19 07:33] LABS: WHITE BLOOD COUNT 6.1 10^3/ul (4.8-10.8)
[2019-05-19 07:52] LABS: ANION GAP 7 (5-13); BLOOD UREA NITROGEN 20 mg/dl (7-20); CALCIUM 8.8 mg/dl (8.4-10.2); CARBON DIOXIDE 27 mmol/L (21-31); CHLORIDE 101 mmol/L (97-110); CREATININE 0.82 mg/dl (0.44-1.00); GLUCOSE 104 mg/dl (70-220); POTASSIUM 4.6 mmol/L (3.5-5.1); SODIUM 135 mmol/L (135-144)
[2019-05-19] MEDS: AMLODIPINE 5 MG TAB PO (08:30)
[2019-05-19] MEDS: DONEPEZIL 10 MG TAB PO (08:30)
[2019-05-19] MEDS: APIXABAN 5 MG TABLET PO (08:30)
[2019-05-19] MEDS: LOSARTAN 25 MG TAB PO (08:31)
[2019-05-19] MEDS: MAGNESIUM OXIDE 400 MG TAB PO (08:31)
[2019-05-19] MEDS: CARBIDOPA/LEVODOPA (25/100) TAB PO ×2 (08:31→12:09)
[2019-05-19] MEDS: PRAMIPEXOLE 0.25 MG TAB PO ×2 (08:31→12:09)
[2019-05-19] MEDS: FERROUS SULFATE (EC) 325 MG TAB PO (08:31)
[2019-05-19] MEDS: FOLIC ACID 1 MG TAB PO (08:31)
[2019-05-19] MEDS: FUROSEMIDE 20 MG TAB PO (08:31)
[2019-05-19] MEDS: AMIODARONE 200 MG TAB PO (08:31)
[2019-05-19] MEDS: FLUTICASONE 0.05% 16 GM NAS SPRAY NASAL (08:32)
[2019-05-19] MEDS: CLOPIDOGREL 75 MG TAB PO (08:32)
[2019-05-19 09:06] LABS: IRON 52 ug/dl (35-150)
[2019-05-19 09:15] LABS: % IRON SATURATION 13 % SAT (22-52); TOTAL IRON BINDING CAPACITY 400 ug/dl (241-421)
[2019-05-19] MEDS: LORAZEPAM 1 MG TAB PO (14:48)
[2019-05-19] MEDS ORDERED: FOSFOMYCIN 3 GM PACKET PO (16:30)
== END 2019-05-19 16:37 | disposition home health service (06) | DRG 56 ==
LOC: E/R 08:49 → 2NE 12:09 → TEL 18:00
DX: G20 Parkinson's disease (principal); I50.33 Acute on chronic diastolic (congestive) heart failure; N39.0 Urinary tract infection, site not specified; N17.9 Acute kidney failure, unspecified; I11.0 Hypertensive heart disease with heart failure; I25.10 Atherosclerotic heart disease of native coronary artery without angina pectoris; E78.5 Hyperlipidemia, unspecified; E86.0 Dehydration; I48.0 Paroxysmal atrial fibrillation; D64.9 Anemia, unspecified; F02.80 Dementia in other diseases classified elsewhere, unspecified severity, without behavioral disturbance, psychotic disturbance, mood disturbance, and anxiety; I69.398 Other sequelae of cerebral infarction; R53.1 Weakness; Z79.82 Long term (current) use of aspirin; Z79.02 Long term (current) use of antithrombotics/antiplatelets; Z79.01 Long term (current) use of anticoagulants; Z96.641 Presence of right artificial hip joint
CPT/HCPCS: 36415; 70450; 71045; 72170; 73510; 74230; 78452; 80048; 80053; 81001; 82550; 82553; 83540; 83735; 84100; 84436; 84443; 84479; 84484; 85025; 87086; 92526; 92610; 92611; 93005; 93017; 93306; 97110; 97116; 97162; 97530; 99285-25